=== PATIENT | male | born 1995 | race Caucasian/White ===

== ENCOUNTER 2023-08-16 06:21 | Emergency (ER) | payer SELFPAY ==
[~2023-08-16] VITALS: Ht 182.9 cm; Wt 105.0 kg
[2023-08-16 06:22] VITALS: BP 141/95; PULSE 102; RESP 15; TEMP 97.6
== END 2023-08-16 08:29 | disposition left against medical advice (07) ==
LOC: EMS 06:23
DX: R07.9 Chest pain, unspecified (principal); Z53.21 Procedure and treatment not carried out due to patient leaving prior to being seen by health care provider
CPT/HCPCS: 93005; 99281; Z7502